=== PATIENT | male | born 1975 | race Native Hawaiian/Other Pacific Islander ===

== ENCOUNTER 2018-05-01 21:14 | Emergency (ER) | payer MEDICAID ==
[2018-05-01] MEDS ORDERED: ONDANSETRON HCL IV 4 MG/2 ML VIAL IVP ONE (21:27)
[2018-05-01] MEDS ORDERED: KETOROLAC 30 MG/ML VIAL IVP ONE (21:27)
[2018-05-01] MEDS ORDERED: 0.9 % SODIUM CHLORIDE 1000ML 1,000 ML IV SCH (21:30)
--- NOTE | 2018-05-01 21:32 | Emergency Department Record ---
History of Present Illness - General Stated complaint: FLANK PAIN/KIDNEY STONES Time Seen by Provider: 05/01/18 21:27 Source: Patient Mode of Arrival: Ambulatory Limitations: No limitations - History of Present Illness Initial comments: 43 yo male presents to ED for evaluation of left sided flank pain symptoms radiating to the LLQ that began 3-4 hours ago. Patient reports that his symptoms came on suddenly, denies fevers, chills, or vomiting symptoms. Patient does report similar symptoms 1 year ago related to a kidney stone, denies health problems at his baseline other than gout. MD Complaint: Other Onset/Timin -: Days(s) Location: Left flank Radiation: LLQ Severity: Severe Quality: Sharp, Stabbing Consistency: Constant Improves with: None Worsens with: None Reports: Denies other symptoms - Related Data Allergies Allergy/AdvReac Type Severity Reaction Status Date / Time peanut Allergy Severe ANAPHYLAXIS Verified 05/01/18 21:38 prochlorperazine Allergy Intermediate COMBATIVE Verified 05/01/18 21:38 [From Compazine] prochlorperazine edisylate Allergy Intermediate COMBATIVE Verified 05/01/18 21: 38 [From Compazine] prochlorperazine maleate Allergy Intermediate COMBATIVE Verified 05/01/18 21:38 [From Compazine] Review of Systems Constitutional: Denies: Chills, Fever, Malaise, Night sweats Eyes: Denies: Eye discharge, Eye pain ENT: Denies: Congestion, Ear pain, Epistaxis Respiratory: Denies: Cough, Dyspnea Cardiovascular: Denies: Chest pain, Dyspnea on exertion Endocrine: Denies: Fatigue, Heat or cold intolerance Gastrointestinal: Reports: Abdominal pain. Denies: Nausea, Vomiting Genitourinary: Denies: Dysuria, Testicular pain, Testicular mass Musculoskeletal: Reports: Back pain. Denies: Arthralgia, Gout, Joint swelling Skin: Denies: Bruising, Change in color Neurological: Denies: Abnormal gait, Confusion, Headache, Tingling Psychiatric: Denies: Anxiety Hematological/Lymphatic: Denies: Anemia, Blood Clots Past Medical History - SOCIAL HISTORY Smoking Status: Never smoker Drug Use: None - RESPIRATORY Hx Respiratory Disorders: Yes Hx Asthma: Yes Hx Sleep Apnea: Yes Hx of CPAP: Yes - CARDIOVASCULAR Hx Cardio Disorders: No - NEURO Hx Neuro Disorders: No - GI Hx GI Disorders: No - Hx Genitourinary Disorders: Yes Hx Kidney Stones: Yes - ENDOCRINE Hx Endocrine Disorders: No - MUSCULOSKELETAL Hx Musculoskeletal Disorders: Yes Hx Gout: Yes - PSYCH Hx Psych Problems: No - HEMATOLOGY/ONCOLOGY Hx Hematology/Oncology Disorders: No Physical Exam - General General Appearance: Alert, Oriented x3, Cooperative, Moderate distress Limitations: No limitations - Head Head exam: Atraumatic, Normocephalic, Normal inspection Head exam detail: negative: Abrasion, Contusion, Salazar's sign, General tenderness, Hematoma, Laceration - Eye Eye exam: Normal appearance. negative: Conjunctival injection, Periorbital swelling, Periorbital tenderness, Scleral icterus - ENT Ear exam: negative: Auricular hematoma, Auricular trauma Nasal Exam: negative: Active bleeding, Discharge, Dried blood, Foreign body Mouth exam: negative: Drooling, Laceration, Muffled voice, Tongue elevation - Neck Neck exam: Normal inspection. negative: Meningismus, Tenderness - Respiratory Respiratory exam: Normal lung sounds bilaterally. negative: Rhonchi, Stridor, Wheezes - Cardiovascular Cardiovascular Exam: Regular rate, Normal rhythm, Normal heart sounds - GI/Abdominal GI/Abdominal exam: Soft. negative: Rebound, Rigid, Tenderness - Rectal Rectal exam: Deferred - exam: Deferred - Extremities Extremities exam: Normal inspection. negative: Calf tenderness, Pedal edema, Tenderness - Back Back exam: Reports: CVA tenderness (L). Denies: CVA tenderness (R) - Neurological Neurological exam: Alert, Normal gait, Oriented X3 - Psychiatric Psychiatric exam: Normal affect, Normal mood - Skin Skin exam: Normal color. negative: Abrasion Type of lesion: negative: abrasion Course - Reevaluation(s) Reevaluation #1: 05/01/18 21:53 Laboratory studies were reviewed and are grossly unremarkable except for: CO2 21 AG 20 UA: 3-6 RBCs 0-2 WBCs No epithelial cells Awaiting for patient to go to CT for imaging of the abdomen and pelvis. Reevaluation #2: 05/01/18 22:35 patient reassessed and reports that he is pain-free at this time. CT imaging report is pending at this time. Reevaluation #3: 05/01/18 23:44 CT Abdomen and Pelvis: 2.5 mm calculus bladder Mild hydroureter/hydronephrosis c/w recently passed stone into the bladder Appendix negative Patient was reassessed, continues to report that his pain symptoms have not returned. Clinically, patient's examination is c/w recently passed calculus. Patient appears stable for discharge with instructions for stone passage and f/ u with PCP in 3-5 days as directed. Medical Decision Making - Lab Data Result diagrams: 05/01/18 21:27 05/01/18 21:27 Disposition Disposition: Discharge Clinical Impression: Kidney stone on left side Disposition: Home, Self-Care Condition: (2) Stable Instructions: Kidney Stones (ED) Additional Instructions: Return to ED if your symptoms worsen or if you have any concerns. Ibuprofen as directed. Follow-up with your family doctor in 3-5 days as directed. Time of Disposition: 23:45 Quality - Quality Measures Quality Measures: N/A - Blood Pressure Screening Does Patient Have Any of the Following: No Blood Pressure Classification: Normal BP Reading Systolic Measurement: 95 Diastolic Measurement: 76 Screening for High Blood Pressure: < Normal BP, F/U Not Required > [G8783]
[2018-05-01 21:36] LABS: BASO % 0.1 % (0-6); EOS % 1.4 % (0-6); GRAN % 56.1 % (47-80); HEMATOCRIT 46.1 % (42.0-52.0); HEMOGLOBIN 16.2 gm/dl (14.0-18.0); MEAN CELL VOLUME 80.9 fl (81-97); MEAN CORPUSCULAR HEMOGLOBIN 28.4 pg (27-33); MEAN CORPUSCULAR HGB CONC 35.1 g/dl (32-36); MEAN PLATELET VOLUME 11.1 fl (7.4-10.4); MONO % 7.4 % (0-9); PLATELET COUNT 169 K/uL (130-400); RED CELL DISTRIBUTION WIDTH 13.1 % (11.5-14.5)
[2018-05-01 21:41] LABS: URINE APPEARANCE CLEAR; URINE BILIRUBIN NEGATIVE (NEGATIVE); URINE BLOOD MODERATE (NEGATIVE); URINE COLOR YELLOW; URINE GLUCOSE (UA) NEGATIVE (NEGATIVE); URINE KETONE 15 mg/dL (NEGATIVE); URINE LEUKOCYTE ESTERASE NEGATIVE (NEGATIVE); URINE NITRITE NEGATIVE (NEGATIVE); URINE PROTEIN NEGATIVE (NEGATIVE); URINE UROBILINOGEN 0.2 E.U./dL (0.20 - 1.00)
[2018-05-01 21:45] LABS: CREATININE 1.5 mg/dL (0.7-1.2); TOTAL PROTEIN 7.7 g/dL (6.6-8.7)
[2018-05-01 21:48] LABS: URINE WBC 0 - 2 (0-2/hpf)
[2018-05-01 21:49] LABS: URINE EPITHELIAL CELLS NONE SEEN (FEW)
[2018-05-01 21:50] LABS: ALB/GLOB RATIO 1.8 (1.1-1.8); ALBUMIN 4.9 g/dL (4.0-5.0)
== END 2018-05-01 23:58 | disposition home or self-care (01) ==
LOC: ER 21:14
DX: N13.2 Hydronephrosis with renal and ureteral calculous obstruction (principal); Z87.442 Personal history of urinary calculi
CPT/HCPCS: 99284 ×2; 96374; 96375; 85025; 80053; 81001; 74176; J1885; J2405; J7030

== ENCOUNTER 2019-05-25 12:55 | Emergency (ER) | payer BC, MEDICAID ==
[2019-05-25] MEDS ORDERED: ACETAMINOPHEN 1,000 MG/100 ML BTL IVPB ONE (13:15)
[2019-05-25] MEDS ORDERED: ONDANSETRON HCL IV 4 MG/2 ML VIAL IV ONE (13:15)
[2019-05-25] MEDS ORDERED: 0.9 % SODIUM CHLORIDE 1,000 ML BAG IV ONE (13:21)
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
[2019-05-25 13:40] LABS: ABSOLUTE NEUTROPHIL COUNT 2.78; BASO % 0.2 % (0-6); EOS % 3.1 % (0-6); GRAN % 54.2 % (47-80); HEMATOCRIT 45.7 % (42.0-52.0); HEMOGLOBIN 15.4 gm/dl (14.0-18.0); LYMPH % 35.7 % (16-45); MEAN CELL VOLUME 83.7 fl (81-97); MEAN CORPUSCULAR HEMOGLOBIN 28.2 pg (27-33); MEAN CORPUSCULAR HGB CONC 33.7 g/dl (32-36); MEAN PLATELET VOLUME 11.3 fl (7.4-10.4); MONO % 6.8 % (0-9); PLATELET COUNT 148 K/uL (130-400); RED BLOOD COUNT 5.46 M/uL (4.40-5.70); RED CELL DISTRIBUTION WIDTH 13.3 % (11.5-14.5); WHITE BLOOD COUNT W/O DIFF 5.1 K/uL (4.2-12.2)
[2019-05-25 13:49] LABS: BLOOD UREA NITROGEN 14 mg/dL (6-20); CREATININE 0.9 mg/dL (0.7-1.2); EST GLOMERULAR FILTRATION RATE > 60 mL/min
[2019-05-25 13:50] LABS: TOTAL PROTEIN 6.7 g/dL (6.6-8.7)
[2019-05-25 13:52] LABS: GLUCOSE,RANDOM 105 mg/dL (74-109)
[2019-05-25 13:55] LABS: ALB/GLOB RATIO 1.9 (1.1-1.8); ALBUMIN 4.4 g/dL (4.0-5.0); ALKALINE PHOSPHATASE 59 U/L (40-129); ALT/SGPT 70 U/L (<41); AST/SGOT 35 U/L (10.0-50.0)
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
== END 2019-05-25 14:38 | disposition home or self-care (01) ==
LOC: ER 12:55
DX: S06.0X0A Concussion without loss of consciousness, initial encounter (principal); M54.2 Cervicalgia; R51 Headache; R11.0 Nausea; V43.52XA Car driver injured in collision with other type car in traffic accident, initial encounter; Y92.488 Other paved roadways as the place of occurrence of the external cause
CPT/HCPCS: 99284 ×2; 96374; 96375; 85025; 80053; 70450; J2405

== ENCOUNTER 2019-09-06 16:13 | Emergency (ER) | payer BC ==
--- NOTE | 2019-09-06 17:32 | Emergency Department Record ---
History of Present Illness - General Chief Complaint: Abdominal Pain Stated Complaint: ABD PAIN Time Seen by Provider: 09/06/19 17:18 Source: Patient Mode of Arrival: Ambulatory Limitations: No limitations - History of Present Illness Initial Comments: The patient has had chronic abdominal pain for some time but it got worse a week ago. He did have an US done a week ago that demonstrated gallstones and does have an appointment with a Surgeon on Tuesday. Today after lunch the pain worsened so he is now here for recheck. There has been no fever, vomiting, diarrhea, or back pain. MD Complaint: Abdominal pain Onset/Timin -: Month(s) Location: Epigastric Radiation: Suprapubic, L flank, R flank Migration to: L Flank, R Flank Severity scale (1-10): 4 Quality: Aching Improves With: Nothing Worsens With: Eating Associated Symptoms: Denies other symptoms - Related Data Previous Rx's Medication Instructions Recorded Naproxen [Naprosyn] 500 mg PO BID #14 tablet. 09/06/19 Allergies Allergy/AdvReac Type Severity Reaction Status Date / Time peanut Allergy Severe ANAPHYLAXIS Verified 09/06/19 17:20 prochlorperazine Allergy Intermediate COMBATIVE Verified 09/06/19 17:20 [From Compazine] prochlorperazine edisylate Allergy Intermediate COMBATIVE Verified 09/06/19 17:20 [From Compazine] prochlorperazine maleate Allergy Intermediate COMBATIVE Verified 09/06/19 17:20 [From Compazine] Travel Screening - Travel/Exposure Within Last 30 Days Have you traveled within the last 30 days?: No - Travel/Exposure Within Last Year Have you traveled outside the [place] in the last year?: No - Additonal Travel Details Have you been exposed to anyone with a communicable illness?: No - Travel Symptoms Symptom Screening: None Review of Systems Constitutional: Denies: Chills, Fever Eyes: Denies: Eye discharge ENT: Denies: Congestion Respiratory: Denies: Cough, Dyspnea Past Medical History - SOCIAL HISTORY Smoking Status: Never smoker Alcohol Use: Occasional Drug Use: None - RESPIRATORY Hx Respiratory Disorders: Yes Hx Asthma: Yes Hx Sleep Apnea: Yes Hx of CPAP: Yes - CARDIOVASCULAR Hx Cardio Disorders: No - NEURO Hx Neuro Disorders: No - GI Hx GI Disorders: No - Hx Genitourinary Disorders: Yes Hx Kidney Stones: Yes - ENDOCRINE Hx Endocrine Disorders: No - MUSCULOSKELETAL Hx Musculoskeletal Disorders: Yes Hx Gout: Yes - PSYCH Hx Psych Problems: No - HEMATOLOGY/ONCOLOGY Hx Hematology/Oncology Disorders: No Family Medical History Any Significant Family History?: No Hx Diabetes: Father, Mother Physical Exam - General General Appearance: Alert, Oriented x3, Cooperative, No acute distress - Head Head exam: Atraumatic, Normocephalic, Normal inspection - Eye Eye exam: Normal appearance, PERRL - Neck Neck exam: Normal inspection, Full ROM. negative: Tenderness - Respiratory Respiratory exam: Normal lung sounds bilaterally. negative: Respiratory distress - Cardiovascular Cardiovascular Exam: Regular rate, Normal rhythm, Normal heart sounds - GI/Abdominal GI/Abdominal exam: Soft, Normal bowel sounds, Tenderness (There is diffuse upper abdominal tenderness but the abdomen is very soft.). negative: Distended, Guarding, Rebound, Rigid - Extremities Extremities exam: Normal inspection, Full ROM, Normal capillary refill. negative: Tenderness - Neurological Neurological exam: Alert, Normal gait, Oriented X3. negative: Abnormal gait, Altered, Motor sensory deficit - Psychiatric Psychiatric exam: negative: Anxious Course Vital Signs 09/06/19 17:09 Temperature 98.6 F Pulse Rate 83 Respiratory 16 Rate Blood Pressure 138/99 Pulse Ox 99 - Reevaluation(s) Reevaluation #1: The patient is doing well at this time. Presently he denies any pain or discomfort. On exam his abdomen is soft and nontender. I did discuss the normal lab results with the patient and did confirm his appointment with Dr. Wiley for Tuesday. I also did discuss the case with Dr. Wiley and he also agrees with the plan for discharge and f/u on Tuesday. 09/06/19 18:45 Medical Decision Making - Management Options MDM Management: Additional Work-up Planned (e.g. ADM/Transfer/OP Study) - Data Complexity MDM Data: Labs Ordered and/or Reviewed, Review and Summary of Old Record Discussed - Lab Data Result diagrams: 09/06/19 17:42 09/06/19 17:42 Disposition Disposition: Discharge Clinical Impression: Abdominal pain Qualifiers: Abdominal location: unspecified location Qualified Code(s): R10.9 - Unspecified abdominal pain Disposition: Home, Self-Care Condition: (2) Stable Instructions: Abdominal Pain (ED) Additional Instructions: Please start your home Omeprazole and use Tylenol for pain. Also you may use the Naprosyn if needed. Please keep the appointment with Dr. Wiley for Tuesday. Do not eat any fatty or fried foods. Please return to the ER for any worsening pain, fever, or vomiting. Do not take Naprosyn if you are taking Motrin. Prescriptions: Naproxen [Naprosyn] 500 mg PO BID #14 tablet.dr Forms: Patient Portal Access Time of Disposition: 18:50 Quality - Quality Measures Quality Measures: N/A - Blood Pressure Screening View Details: Yes Does Patient Have Any of the Following: No Blood Pressure Classification: Hypertensive Reading Systolic Measurement: 138 Diastolic Measurement: 99 Screening for High Blood Pressure: < First Hypertensive BP, F/U Documented > [G8950] First Hypertensive Follow-up Interventions: Referral to alternative/primary care provider.
[2019-09-06] MEDS: ACETAMINOPHEN 1,000 MG/100 ML BTL IVPB ONE (17:41)
[2019-09-06] MEDS: 0.9 % SODIUM CHLORIDE 1,000 ML BAG IV ONE (17:41)
[2019-09-06 17:49] LABS: BASO % 0.2 % (0-6); EOS % 3.1 % (0-6); GRAN % 58.8 % (47-80); HEMATOCRIT 46.2 % (42.0-52.0); HEMOGLOBIN 16.1 gm/dl (14.0-18.0); LYMPH % 28.2 % (16-45); MEAN CELL VOLUME 82.1 fl (81-97); MEAN CORPUSCULAR HEMOGLOBIN 28.6 pg (27-33); MEAN CORPUSCULAR HGB CONC 34.8 g/dl (32-36); MEAN PLATELET VOLUME 11.5 fl (7.4-10.4); MONO % 9.7 % (0-9); PLATELET COUNT 148 K/uL (130-400); RED BLOOD COUNT 5.63 M/uL (4.40-5.70); RED CELL DISTRIBUTION WIDTH 13.3 % (11.5-14.5)
[2019-09-06 17:58] LABS: URINE APPEARANCE CLEAR; URINE BILIRUBIN NEGATIVE (NEGATIVE); URINE BLOOD NEGATIVE (NEGATIVE); URINE COLOR YELLOW; URINE GLUCOSE (UA) NEGATIVE (NEGATIVE); URINE KETONE NEGATIVE (NEGATIVE); URINE LEUKOCYTE ESTERASE NEGATIVE (NEGATIVE); URINE NITRITE NEGATIVE (NEGATIVE); URINE PROTEIN NEGATIVE (NEGATIVE); URINE UROBILINOGEN 0.2 E.U./dL (0.20 - 1.00)
[2019-09-06 18:06] LABS: BLOOD UREA NITROGEN 9 mg/dL (6-20)
[2019-09-06 18:07] LABS: CREATININE 0.9 mg/dL (0.7-1.2); EST GLOMERULAR FILTRATION RATE > 60 mL/min; LIPASE 36 U/L (13-60); TOTAL PROTEIN 7.7 g/dL (6.6-8.7)
[2019-09-06 18:09] LABS: GLUCOSE,RANDOM 105 mg/dL (74-109)
[2019-09-06 18:12] LABS: ALBUMIN 4.5 g/dL (4.0-5.0); ALKALINE PHOSPHATASE 73 U/L (40-129); ALT/SGPT 122 U/L (<41); AST/SGOT 64 U/L (10.0-50.0); BILIRUBIN,DIRECT 0.3 mg/dL (0-0.3)
[2019-09-06] MEDS: KETOROLAC 30 MG/ML VIAL IVP ONE (18:25)
== END 2019-09-06 19:12 | disposition home or self-care (01) ==
LOC: ER 16:13
DX: R10.13 Epigastric pain (principal)
CPT/HCPCS: 80048; 80076; 81003; 83690; 85025; 96365; 96375; 99284; J1885; J7030

== ENCOUNTER 2019-09-17 07:34 | Day surgery (SDC) | payer BC ==
[~2019-09-17 07:34] MED LIST: ACETAMINOPHEN 1,000 MG/100 ML BTL IVPB ONE; FAMOTIDINE 20MG TABLET PO ONE; MECLIZINE 25 MG TABLET PO ONE; METOCLOPRAMIDE 10 MG TABLET PO ONE
[2019-09-17] MEDS ORDERED: SUCCINYLCHOLINE 20 MG/ML 10ML IVP ONE (07:35)
[2019-09-17] MEDS ORDERED: DEXAMETHASONE 4 MG/ML 1ML VIAL IVP ONE (07:35)
[2019-09-17] MEDS ORDERED: NEOSTIGMINE 1 MG/1 ML,10ML VIAL IV ONE (07:35)
[2019-09-17] MEDS ORDERED: KETOROLAC 30 MG/ML VIAL IVP ONE (07:35)
[2019-09-17] MEDS ORDERED: FENTANYL PF 100MCG/2ML VIAL IV ONE (07:35)
[2019-09-17] MEDS ORDERED: PROPOFOL 10 MG/ML VIAL IV ONE (07:35)
[2019-09-17] MEDS ORDERED: MIDAZOLAM HCL 2MG/2ML VIAL IV ONE (07:35)
[2019-09-17] MEDS ORDERED: ROCURONIUM BROMIDE 50MG/5ML VIAL IV ONE (07:35)
[2019-09-17] MEDS ORDERED: ONDANSETRON HCL IV 4 MG/2 ML VIAL IVP ONE ×2 (07:35→10:53)
[2019-09-17] MEDS ORDERED: GLYCOPYRROLATE 0.2 MG/ML ML IV ONE (07:35)
[2019-09-17] MEDS ORDERED: SEVOFLURANE 250 ML INH ONE (07:35)
[2019-09-17] MEDS ORDERED: LIDOCAINE 2% MDV (20MG/ML) 20ML VIAL IV ONE (07:35)
[2019-09-17] MEDS ORDERED: RINGERS SOLUTION,LACTATED 1,000 ML IV ONE ×2 (08:17→09:31)
[2019-09-17] MEDS ORDERED: BUPIVACAINE 0.25% W/EPI MPF 30ML VIAL SQ ONE (09:31)
[2019-09-17] MEDS ORDERED: HYDROCODONE/APAP 5/325MG TABLET PO ONE (10:38)
--- NOTE | 2019-09-17 14:20 | Operative Note ---
DATE OF SURGERY: 09/17/2019 SURGEON: Ranjith Wiley DO PREOPERATIVE DIAGNOSIS: Symptomatic biliary dyskinesia. POSTOPERATIVE DIAGNOSIS: Symptomatic biliary dyskinesia. OPERATION: Laparoscopic cholecystectomy. PROCEDURE: The patient is a 44-year-old male who was brought to the operating room and placed in a supine position. General anesthesia was administered per the department of anesthesia. The patient's abdomen was shaved of hair and prepped and draped in the usual sterile fashion. The supraumbilical region was selected due to his obesity. This area was anesthetized with a total of 5 mL of 0.25% Sensorcaine with epinephrine. A 2 cm supraumbilical incision was made. This was carried down to the anterior rectus fascia. This was incised. Tank clamps were placed on the fascial edges and brought up into the wound. Stay sutures of 0 Vicryl were placed. Posterior rectus sheath was identified and incised. The peritoneal cavity was entered bluntly. At this time, a 10 mm blunt Soo port was placed. Adequate pneumoperitoneum was established. Under direct visualization, additional 5 mm epigastric and two 5 mm right subcostal ports were placed. The patient was then rotated into steep reverse Trendelenburg with rotation to left. The gallbladder was identified. It was noted to be somewhat edematous and thickened. This was retracted in a cephalad and lateral direction opening up the angle of Calot. The hepatocystic triangle was thoroughly dissected out. There was no aberrant anatomy, no posterior ductal structures. The cystic duct and cystic artery were clearly identified. Each one was doubly clipped and cut in a standard fashion. Gallbladder was then taken off the liver bed with JERRY Harmonic. This was then extracted through the umbilical port. Right upper quadrant was rechecked and found to be hemostatic. No bleeding. No bile leaking. No bowel injury noted. The patient was leveled out. The pneumoperitoneum was released. All ports were removed. The fascia was closed with 0 Vicryl in a [id number] fashion. The skin at all ports was closed with 4-0 Vicryl. The patient was taken to the recovery room in stable condition. FINDINGS AT THE TIME OF SURGERY: Chronic cholecystitis. MTDD
== END 2019-09-17 11:15 | disposition home or self-care (01) ==
LOC: SUR 07:34
PROVIDERS: ATTEND Surgery
DX: K83.9 Disease of biliary tract, unspecified (principal); M10.9 Gout, unspecified; G47.33 Obstructive sleep apnea (adult) (pediatric)
CPT/HCPCS: J0330; J1885; J2405; J2710; J7120